=== PATIENT | female | born 1975 | race Caucasian/White ===

== ENCOUNTER 2016-12-19 18:04 | Emergency (ER) | payer BC ==
[~2016-12-19] VITALS: Ht 170.2 cm; Wt 65.8 kg
[2016-12-19 18:10] VITALS: BP 126/51
--- NOTE | 2016-12-19 18:25 | ED.ADGEN ---
Adult General Chief Complaint Chief Complaint Left-sided rib pain HPI HPI Patient is a 41 year old female who presents with left-sided rib pain. She states yesterday she was climbing a hill carrying some rocks slipped and fell and landed on the left side of her chest. She states she had immediate pain and discomfort. She did take some Advil but her pain still 9 out 10. She denies any shortness of breath fevers chills nausea vomiting. Review of Systems Review of Systems Constitutional: Denies fever or chills [] Eyes: Denies change in visual acuity, redness, or eye pain [] HENT: Denies nasal congestion or sore throat [] Respiratory: Denies cough or shortness of breath [] Cardiovascular: No additional information not addressed in HPI [] GI: Denies abdominal pain, nausea, vomiting, bloody stools or diarrhea [] : Denies dysuria or hematuria [] Musculoskeletal: Denies back pain or joint pain [] Integument: Denies rash or skin lesions [] Neurologic: Denies headache, focal weakness or sensory changes [] Endocrine: Denies polyuria or polydipsia [] Current Medications Current Medications Current Medications Medications (Trade) Dose Ordered Sig/Francisca Start Time Stop Time Status Last Admin Dose Admin Acetaminophen/ Hydrocodone Bitart (Lortab 5/325) 2 tab 1X ONCE 12/19/16 18:45 12/19/16 18:46 Allergies Allergies Allergies Coded Allergies Type Severity Reaction Last Updated Verified No Known Drug Allergies 12/19/16 No Physical Exam Physical Exam Constitutional: Well developed, well nourished, no acute distress, non-toxic appearance. [] HENT: Normocephalic, atraumatic, bilateral external ears normal, oropharynx moist, no oral exudates, nose normal. [] Eyes: PERRLA, EOMI, conjunctiva normal, no discharge. [] Neck: Normal range of motion, no tenderness, supple, no stridor. [] Cardiovascular:Heart rate regular rhythm, no murmur [] Lungs & Thorax: Bilateral breath sounds clear to auscultation, tender palpation over the lateral aspect of her ribs without any ecchymosis appreciated or step-offs Abdomen: Bowel sounds normal, soft, no tenderness, no masses, no pulsatile masses. [] Skin: Warm, dry, no erythema, no rash. [] Back: No tenderness, no CVA tenderness. No step-offs noted. Extremities: No tenderness, no cyanosis, no clubbing, ROM intact, no edema. [] Neurologic: Alert and oriented X 3, normal motor function, normal sensory function, no focal deficits noted. [] Psychologic: Affect normal, judgement normal, mood normal. [] EKG EKG [] Radiology/Procedures Radiology/Procedures 3 view rib series and AP did not show any pneumothorax, consolidation, or rib fractures. As interpreted by me. Course & Med Decision Making Course & Med Decision Making Pertinent Labs and Imaging studies reviewed. (See chart for details) Patient is having ecchymosis or any other abnormalities on her physical exam around her chest wall. X-rays nonacute. Patient being discharged home with [place]. Return precautions given she is certainly not to drive or taking [place]. Final Impression Final Impression Chest wall pain/contusion Problems: Dragon Disclaimer Dragon Disclaimer This electronic medical record was generated, in whole or in part, using a voice recognition dictation system. CHACHO NEELY MD Dec 19, 2016 18:25
[2016-12-19] MEDS ORDERED: HYDR-971 PO (18:42)
[2016-12-19] MEDS ORDERED: HYDROcodone/APAP 5/325MG 1 TAB TABLET PO ONE (18:45)
--- NOTE | 2016-12-20 07:55 | RAD ---
Indication: Fall with pain to the left ribs. Time of exam 1832 hours. There is a nondisplaced fracture involving the lateral portion of the left sixth rib. No parenchymal contusion, effusion or pneumothorax is seen. Impression: Left sixth rib fracture.
== END 2016-12-19 18:45 | disposition home or self-care (01) ==
LOC: ER 18:04
DX: R07.81 Pleurodynia (principal); W01.0XXA Fall on same level from slipping, tripping and stumbling without subsequent striking against object, initial encounter; Y93.89 Activity, other specified; Y99.8 Other external cause status; Y92.89 Other specified places as the place of occurrence of the external cause
CPT/HCPCS: 71101; 99284